=== PATIENT | male | born 1975 | race Hispanic/Latino ===

== ENCOUNTER 2017-01-12 23:37 | Inpatient (IN) | payer MEDICAID ==
[2017-01-12 23:37] VITALS: BMI 23.6
--- NOTE | 2017-01-12 23:41 | ED PDOC ---
Psych Transfer Clearance - Clearance Statement Clearance Statement: Reviewed vital signs, lab results and transfer papers. Patient clinically stable for psychiatric admission.
[2017-01-12 23:46] VITALS: O2SAT 98
[2017-01-13] MEDS ORDERED: DiphenhydrAMINE 50 mg/ml Inj IM PRN (01:27)
[2017-01-13] MEDS ORDERED: Magnesium Hydroxide Susp 30 ml UD PO PRN (01:27)
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
[2017-01-13 07:39] LABS: T4 7.54 ug/dl (5.5-11.0)
[2017-01-13 07:52] LABS: THYROID STIMULATING HORMONE 0.32 mIU/ML (0.46-4.68)
[2017-01-13] MEDS: Multivitamin With Minerals Tab PO SCH (10:17)
--- NOTE | 2017-01-13 10:32 | PCM.PSYCH ---
Initial Psychiatric Evaluation - Initial Psychiatric Evaluation Type of Admission: Voluntary Chief Complaint (in patient's own words): i m starting to kick hard Patient's Reaction to Hospitalization: cooperative History of Present Illness and Precipitating Events: pt has history of iv heroin use as well as bipolar disorder. he presented to er at [place] stating he was suicidal. he is currently stating he is withdrawing from heroin- cramps, nausea, diarrhea, aches. he also states he's been off his medications for 5 weeks. he states when he takes his medications he feels more stable. pt reports he feels safe in the hospital. he is currently very uncomfortable and unable to provide details. Current Medications: Active Medications Generic Name Dose Route Start Last Admin Trade Name Freq PRN Reason Stop Dose Admin Acetaminophen 650 mg 01/13/17 01:27 Tylenol 325mg Tab PO Q4 PRN Pain, moderate (4-7) Al Hydrox/Mg Hydrox/Simethicone 30 ml 01/13/17 01:27 Maalox Plus 30 Ml PO Q4 PRN Dyspepsia Citalopram Hydrobromide 20 mg 01/13/17 10:15 Celexa PO DAILY EVERARDO Clonidine HCl 0.1 mg 01/13/17 10:15 Catapres PO 01/16/17 10:16 Q8 EVERARDO Cyclobenzaprine HCl 10 mg 01/13/17 10:16 Flexeril PO TID PRN Muscle spasm Diphenhydramine HCl 50 mg 01/13/17 01:27 Benadryl IM Q6 PRN Extrapyramidal S/S Unable PO Diphenhydramine HCl 50 mg 01/13/17 01:27 Benadryl PO Q6 PRN Extrapyramidal Symptoms Divalproex Sodium 500 mg 01/13/17 10:[address](*Bid*) PO BID EVERARDO Folic Acid 1 mg 01/13/17 09:00 01/13/17 10:18 Folic Acid PO 1 mg DAILY EVERARDO Administration Gabapentin 400 mg 01/13/17 13:00 Neurontin PO TID EVERARDO Haloperidol 5 mg 01/13/17 01:27 Haldol PO Q4 PRN Agitation Haloperidol Lactate 5 mg 01/13/17 01:27 Haldol IM Q4 PRN Agitation, Unable to Take PO Loperamide HCl 2 mg 01/13/17 10:16 Imodium PO QID PRN Diarrhea Lorazepam 2 mg 01/13/17 01:27 Ativan IM Q4 PRN Anxiety/Agitation,Unable PO Lorazepam 2 mg 01/13/17 01:27 Ativan PO Q4 PRN Anxiety/Agitation Lorazepam 1 mg 01/13/17 09:00 01/13/17 10:17 Ativan PO 1 mg TID EVERARDO Administration Magnesium Hydroxide 30 ml 01/13/17 01:27 Milk Of Magnesia PO HS PRN Constipation Multivitamins/Minerals 1 tab 01/13/17 09:00 01/13/17 10:17 Therapeutic-M Tab PO 1 tab DAILY EVERARDO Administration Nicotine 1 patch 01/13/17 10:15 Nicoderm Cq TD DAILY EVERARDO Ondansetron HCl 4 mg 01/13/17 10:16 Zofran Tab PO Q4 PRN Nausea/Vomiting Quetiapine Fumarate 50 mg 01/13/17 22:00 Seroquel PO HS EVERARDO Thiamine HCl 100 mg 01/13/17 09:00 01/13/17 10:18 Vitamin B1 Tab PO 100 mg DAILY EVERARDO Administration Past Psychiatric History - Past Psychiatric History Previous Treatment History: Inpatient Prior Professional Help: multiple prior admissions Prior Psychiatric Treatment: states he has an aa sponser and was sober for 6 months last year History of Abuse: denies History of ETOH/Drug Use: pt injecting 3 bags of heroin iv and drinking 1 1/2 pints of vodka and 2 beers daily. smokes appox a pack of cigarettes daily History of Family Illness: denies Pertinent Medical Hx (Current Medical&Sleep Prob, Allergies): Allergies Allergy/AdvReac Type Severity Reaction Status Date / Time Penicillins Allergy RASH Verified 01/12/17 15:44 FISH AdvReac RASH Verified 01/12/17 15:44 Baclofen [Baclofen] 10 mg PO TID 07/05/16 Divalproex [Depakote DR] 500 mg PO BID 07/05/16 Escitalopram [Lexapro] 20 mg PO DAILY 10/29/16 Gabapentin 300 mg PO TID 10/29/16 QUEtiapine [SEROquel] 250 mg PO HS 10/29/16 Escitalopram [Lexapro] 10 mg PO DAILY #30 tab 11/02/16 Gabapentin [Neurontin] 300 mg PO BID #60 cap 03/14/17 QUEtiapine [Seroquel] 100 mg PO HS #30 tab 11/02/16 Naproxen 500 mg PO BID #30 tab 11/04/16 pt states he is hep c positive and not getting treatment Review of Systems - Psychiatric Psychiatric: As Per HPI, Abnormal Sleep Pattern, Anhedonia, Behavioral Changes, Depression, Difficulty Concentrating, Irritability, Suicidal Ideation Mental Status Examination - Personal Presentation Personal Presentation: Looks stated age - Affect Affect: Blunted - Motor Activity Motor Activity: Calm - Reliability in Providing Information Reliability in Providing Information: Good - Speech Speech: Organized - Mood Mood: Depressed - Formal Thought Process Formal Thought Process: No Impairment - Obsessions/Compulsions Obsessions: No Compulsions: No - Cognitive Functions Orientation: Person, Place, Situation, Time Sensorium: Alert Attention/Concentration: Attentive Abstract Thinking: [place] Estimate of Intelligence: Average Judgement: Intact, as evidence by: Insight regarding need for hospitalization Memory: Recent intact, as evidence by: Ability to recall events of the day, Remote intact, as evidenced by: Abilit to recall sig. life events - Risk Risk: Suicidal, Withdrawal - Strength & Assets Inventory Strength & Assets Inventory: Intelligence - Limitations Limitations: Living alone DSM 5 DX - DSM 5 DSM 5 Diagnosis: opioid dependence bipolar disorder - Recommended/Plan of Treatment Treatment Recommendations and Plan of Treatment: admit to [facility] for safety and observation gather collateral information provide supportive therapy adjust medications- restart home meds, ativan and opioid protocol meds hospitalist consult disposition planning- t/c referral to inpt rehab Projected ELOS: 3-5 days Prognosis: fair - Smoking Cessation Smoking Cessation Initiated: Yes
[2017-01-13] MEDS: Divalproex 500 mg DR(BID formulation) PO SCH ×2 (14:55→18:09)
[2017-01-14] MEDS: Multivitamin With Minerals Tab PO SCH (09:23)
[2017-01-14] MEDS: Divalproex 500 mg DR(BID formulation) PO SCH ×2 (09:24→16:18)
--- NOTE | 2017-01-14 09:51 | PCM.PYCHPN ---
Psychiatric Progress Note - Psychiatric Progress Note Patient seen today, length of contact: discussed with team Patient Chief Complaint: i m doing a little better Problems Identified/Issues Discussed: pt reports cramping, some diarrhea, aches. he is reporting no side effects with the reintroduction of his medications. he tends to isolate in his room. Medication Change: Yes Medical Record Reviewed: Yes Mental Status Examination - Cognitive Function Orientation: Person, Place, Situation, Time Memory: Intact Attention: WNL Concentration: WNL Association: WN Fund of Knowledge: [facility] Decription of patient's judgement and insights: fair - Mood Mood: Depressed - Affect Affect: Blunted - Speech Speech: Appropriate - Formal Thought Process Formal Thought Process: No Impairment Psychotic Thoughts and Behaviors: denies a/v hallucinations - Suicidal Ideation Suicidal Ideation: No - Homicidal Ideation Homicidal Ideation: No Plan: denies suicidal or homicidal thoughts Goal/Treatment Plan - Goal/Treatment Plan Need for Continued Stay: Remain at risks for inpatient hospitalization, Discharge may exacerbated symptoms Progress Toward Problem(s) and Goals/Treatment Plan: opioid depenedence bipolar disorder will continue current treatment disposition planning Estimated Date of D/C: 01/18/17
[2017-01-14 17:14] VITALS: RESP 18
[2017-01-15] MEDS: Divalproex 500 mg DR(BID formulation) PO SCH ×2 (08:59→17:44)
[2017-01-15] MEDS: Multivitamin With Minerals Tab PO SCH (09:23)
--- NOTE | 2017-01-15 17:51 | PCM.PYCHPN ---
Psychiatric Progress Note - Psychiatric Progress Note Patient seen today, length of contact: chart reviewed, case discussed with team 35min Patient Chief Complaint: withdrawal opiates, depression, resolving suicidal ideations Problems Identified/Issues Discussed: was feeling sad, wanted to overdose, feels sad without opiates worse with, intermittent adherence, generalized body pain resolving, diarrhea resolving Medical Problems: per chart hep c per hx Diagnostic Results: per psychiatry per medicine per nursing per social work DSM 5 Symptoms Update: mood, withdrawal, suicidal ideations, relapse, decrease community support, family circumstances Medication Change: Yes (seroquel 100mg po hs ) Medical Record Reviewed: Yes Mental Status Examination - Cognitive Function Orientation: Person, Place, Situation, Time Memory: Intact Attention: WNL Concentration: WNL Association: WNL Fund of Knowledge: [facility] Decription of patient's judgement and insights: impaired - Mood Mood: Depressed - Affect Affect: Blunted - Speech Speech: Appropriate - Formal Thought Process Formal Thought Process: No Impairment - Suicidal Ideation Suicidal Ideation: No - Homicidal Ideation Homicidal Ideation: No Goal/Treatment Plan - Goal/Treatment Plan Need for Continued Stay: Remain at risks for inpatient hospitalization, Discharge may exacerbated symptoms Progress Toward Problem(s) and Goals/Treatment Plan: inpt milieu adjust meds per status seroquel 100mg po hs vital signs and clinical observation per status and protocol discharge planning in progresss Estimated Date of D/C: 01/18/17 - Smoking Cessation Smoking Cessation Initiated: No Reason for not providing: defers
[2017-01-16] MEDS: Divalproex 500 mg DR(BID formulation) PO SCH (09:38)
[2017-01-16] MEDS: Multivitamin With Minerals Tab PO SCH (09:38)
--- NOTE | 2017-01-16 20:10 | PCM.PYCHPN ---
Psychiatric Progress Note - Psychiatric Progress Note Patient seen today, length of contact: chart reviewed, case discussed with team 35min Patient Chief Complaint: withdrawal opiates, depression, resolving suicidal ideations reports is 90 per cent better in terms of withdrawal, expresses desire to follow up in [facility] sleeping better feeling calmer Problems Identified/Issues Discussed: was feeling sad, wanted to overdose, feels sad without opiates worse with, intermittent adherence, generalized body pain resolving, diarrhea resolving Medical Problems: per chart hep c per hx Diagnostic Results: per psychiatry per medicine per nursing per social work Medication Change: Yes (seroquel 100mg po hs ) Medical Record Reviewed: Yes Mental Status Examination - Cognitive Function Orientation: Person, Place, Situation, Time Memory: Intact Attention: WNL Concentration: WNL Association: WNL Fund of Knowledge: [facility] Decription of patient's judgement and insights: impaired - Mood Mood: Depressed - Affect Affect: Blunted - Speech Speech: Appropriate - Formal Thought Process Formal Thought Process: No Impairment - Suicidal Ideation Suicidal Ideation: No - Homicidal Ideation Homicidal Ideation: No Goal/Treatment Plan - Goal/Treatment Plan Need for Continued Stay: Remain at risks for inpatient hospitalization, Discharge may exacerbated symptoms Progress Toward Problem(s) and Goals/Treatment Plan: inpt milieu adjust meds per status seroquel 100mg po hs vital signs and clinical observation per status and protocol discharge planning in progresss Estimated Date of D/C: 01/18/17
[2017-01-17] MEDS: Multivitamin With Minerals Tab PO SCH (10:37)
[2017-01-17] MEDS: Divalproex 500 mg DR(BID formulation) PO SCH ×2 (10:41→18:02)
--- NOTE | 2017-01-17 11:24 | PCM.PYCHPN ---
Psychiatric Progress Note - Psychiatric Progress Note Patient seen today, length of contact: discussed with team Patient Chief Complaint: my legs feel weak Problems Identified/Issues Discussed: pt reports withdrawal symptoms have diminished. he feels weak and dizzy with increase in seroquel. less tremulous. pt has future oriented goals. Medication Change: Yes (lower seroquel) Medical Record Reviewed: Yes Mental Status Examination - Cognitive Function Orientation: Person, Place, Situation, Time Memory: Intact Attention: WNL Concentration: WNL Association: WNL Fund of Knowledge: WN Decription of patient's judgement and insights: fair - Mood Mood: Depressed - Affect Affect: Blunted - Speech Speech: Appropriate - Formal Thought Process Formal Thought Process: No Impairment - Suicidal Ideation Suicidal Ideation: No - Homicidal Ideation Homicidal Ideation: No Goal/Treatment Plan - Goal/Treatment Plan Need for Continued Stay: Remain at risks for inpatient hospitalization, Discharge may exacerbated symptoms Progress Toward Problem(s) and Goals/Treatment Plan: opioid depenedence bipolar disorder will continue current treatment lower seroquel lower ativan disposition planing Estimated Date of D/C: 01/18/17
[2017-01-18] MEDS: Multivitamin With Minerals Tab PO SCH (08:33)
[2017-01-18] MEDS: Divalproex 500 mg DR(BID formulation) PO SCH ×2 (08:39→16:45)
[2017-01-18 08:56] VITALS: BP 106/58; PULSE 76; TEMP 97.5
--- NOTE | 2017-01-18 13:15 | PCM.PYCHPN ---
Psychiatric Progress Note - Psychiatric Progress Note Patient seen today, length of contact: discussed with team Patient Chief Complaint: i'm ok Problems Identified/Issues Discussed: pt denies withdrawal symptoms. resistant to change rooms to accommodate another pt. he is reporting looking forward to leaving for [place] . Medication Change: No ( ) Medical Record Reviewed: Yes Mental Status Examination - Cognitive Function Orientation: Person, Place, Situation, Time Memory: Intact Attention: WNL Concentration: WNL Association: WN Fund of Knowledge: [facility] Decription of patient's judgement and insights: fair - Mood Mood: Depressed - Affect Affect: Blunted - Speech Speech: Appropriate - Formal Thought Process Formal Thought Process: No Impairment - Suicidal Ideation Suicidal Ideation: No - Homicidal Ideation Homicidal Ideation: No Goal/Treatment Plan - Goal/Treatment Plan Need for Continued Stay: Remain at risks for inpatient hospitalization, Discharge may exacerbated symptoms Progress Toward Problem(s) and Goals/Treatment Plan: opioid depenedence bipolar disorder will continue current treatment lower librium continue current meds disposition planing Estimated Date of D/C: 01/20/17
[2017-01-18] MEDS: Alum-Mag Hydrox-Simethicone Susp (30 mL) PO PRN (19:27)
[2017-01-18] MEDS: Pantoprazole 40 mg EC Tab PO SCH (21:57)
[2017-01-18 22:12] LABS: BASO # 0.1 K/uL (0.0-0.2); BASO % 0.8 % (0.0-2.0); EOS # 0.2 K/uL (0.0-0.7); EOS % 3.3 % (0.0-4.0); HEMATOCRIT 40.4 % (35.0-51.0); LYMPH # 2.4 K/uL (1.0-4.3); MEAN CELL VOLUME 90.5 fl (80.0-94.0); MEAN CORPUSCULAR HEMOGLOBIN 30.8 pg (27.0-31.0); MONO # 0.6 K/uL (0.0-0.8); MONO % 9.6 % (0.0-10.0); NEUT # 3.4 K/uL (1.8-7.0); NEUT % 50.3 % (50.0-75.0); RED CELL DISTRIBUTION WIDTH 15.2 % (11.5-14.5); WHITE BLOOD COUNT 6.7 K/uL (4.8-10.8)
[2017-01-18 22:24] LABS: ALB/GLOB RATIO 1.3 (1.0-2.1); ALKALINE PHOSPHATASE 77 U/L (38-126); ALT/SGPT 42 U/L (21-72); AST/SGOT 32 U/L (17-59); BILIRUBIN,TOTAL 0.2 mg/dl (0.2-1.3); BLOOD UREA NITROGEN 20 mg/dl (9-20); CALCIUM 9.4 mg/dL (8.4-10.2); CARBON DIOXIDE 26 mmol/L (22-30); CHLORIDE 101 mmol/L (98-107); GFR AFRICAN-AMERICAN > 60; GLUCOSE,RANDOM 103 mg/dL (75-110); LIPASE 197 U/L (23-300); POTASSIUM 4.4 MMOL/L (3.6-5.0); SODIUM 139 mmol/l (132-148); TOTAL PROTEIN 7.5 G/DL (6.3-8.2)
[2017-01-19] MEDS: Alum-Mag Hydrox-Simethicone Susp (30 mL) PO PRN (04:30)
[2017-01-19] MEDS: Divalproex 500 mg DR(BID formulation) PO SCH ×2 (09:23→09:28)
[2017-01-19] MEDS: Multivitamin With Minerals Tab PO SCH (09:23)
--- NOTE | 2017-01-19 14:23 | PCM.PYCHPN ---
Psychiatric Progress Note - Psychiatric Progress Note Patient seen today, length of contact: discussed with team Patient Chief Complaint: i'm feel good Problems Identified/Issues Discussed: pt focused on his discharge tomorrow. states he will be with his sponsor from . he is denying any suicidal thoughts. denies medication side effects. Medication Change: Yes (dc librium) Medical Record Reviewed: Yes Mental Status Examination - Cognitive Function Orientation: Person, Place, Situation, Time Memory: Intact Attention: WNL Concentration: WNL Association: WNL Fund of Knowledge: WN Decription of patient's judgement and insights: fair - Mood Mood: Neutral - Affect Affect: Broad - Speech Speech: Appropriate - Formal Thought Process Formal Thought Process: No Impairment - Suicidal Ideation Suicidal Ideation: No - Homicidal Ideation Homicidal Ideation: No Goal/Treatment Plan - Goal/Treatment Plan Need for Continued Stay: Remain at risks for inpatient hospitalization, Discharge may exacerbated symptoms Progress Toward Problem(s) and Goals/Treatment Plan: opioid depenedence bipolar disorder will continue current treatment discontinue librium continue current meds disposition planing- discharge tomorrow morning Estimated Date of D/C: 01/20/17
--- NOTE | 2017-01-19 14:57 | PCM.PYCHDC ---
Mental Status Examination - Mental Status Examination Orientation: Person, Place, Situation, Time Memory: Intact Mood: Depressed Affect: Broad Speech: Appropriate Attention: WNL Concentration: WNL Association: WNL Fund of Knowledge: WNL Formal Thought Process: No Impairment Description of patient's judgement and insight: fair Psychotic Thoughts and Behaviors: denies a/v hallucinations Suicidal Ideation: No Current Homicidal Ideation?: No Plan: pt denies any suicidal or homicidal thoughts/plans or intent Discharge Summary - Discharge Note Reason for Hospitalization: substance use, depression, non-adherence with medications Psychiatric History (includes Medical, Family, Personal Hx): history of polysubstance abuse, bipolar disorder Laboratory Data: Abnormal Lab Results 01/18/17 01/18/17 21:51 21:51 WBC 6.7 RBC 4.46 Hgb 13.7 Hct 40.4 MCV 90.5 MCH 30.8 MCHC 34.0 RDW 15.2 H Plt Count 271 MPV 8.0 Neut % (Auto) 50.3 Lymph % (Auto) 36.0 [place] % (Auto) 9.6 Eos % (Auto) 3.3 Baso % (Auto) 0.8 Neut # 3.4 Lymph # 2.4 Valencia # 0.6 Eos # 0.2 Baso # 0.1 Sodium 139 Potassium 4.4 Chloride 101 Carbon Dioxide 26 Anion Gap 17 BUN 20 Creatinine 1.1 Est GFR ( Amer) > 60 Est GFR (Non-Af Amer) > 60 Random Glucose 103 Calcium 9.4 Total Bilirubin 0.2 AST 32 ALT 42 Alkaline Phosphatase 77 Total Protein 7.5 Albumin 4.3 Globulin 3.2 Albumin/Globulin Ratio 1.3 Lipase 197 Consultations:: List each consultation separately and include: 1. Reason for request. 2. Findings. 3. Follow-up Consultations: seen by hospitalist Summary of Hospital Course include:: 1. Description of specific treatment plan utilized for patients during their course of treatmen. 2. Summarize the time- course for resolution of acute symptoms and/or regressed behaviors. 3. Describe issues identified and worked on during hospitalization. 4. Describe medication utilized. 5. Describe medical problems identified and treated. 6. Reassessment of suicide risk Summary of Hospital Course: pt has history of iv heroin use as well as bipolar disorder. he presented to er at [facility] stating he was suicidal. he is currently stating he is withdrawing from heroin- cramps, nausea, diarrhea, aches. he also states he's been off his medications for 5 weeks. he states when he takes his medications he feels more stable. pt reports he feels safe in the hospital. he is currently very uncomfortable and unable to provide details. pt was admitted to [facility] and oriented to the unit. pt placed on routine safety protocols. pt was started on medications to help with withdrawal symptoms. he was started back on his regular psychiatric medications. his symptoms improved. his boss was in contact with pt and pt had a job set up after discharge. pt's aa sponsor was going to be with pt after discharge. pt was denying any suicidal or homicidal thoughts and was discharged home. - Final Diagnosis (DSM 5) Condition upon Discharge: GOOD DSM 5: polysubstance dependence bipolar disorder Disposition: HOME/ ROUTINE Follow-up Treatment Plan: take medications as prescribed do not use alcohol tobacco or other illicit substances call 911 if any suicidal or homicidal thoughts f/u with aftercare in [facility] attend aa meetings daily. Prescriptions/Medication Reconciliation: Citalopram [celEXA] 20 mg PO DAILY #30 tab Divalproex [Depakote DR] 500 mg PO BID #60 Folic Acid 1 mg PO DAILY #30 tab Gabapentin [Neurontin] 400 mg PO TID #90 cap Multimineral/Multivitamin [Therapeutic-M Tab] 1 tab PO DAILY #30 tab Nicotine 21 mg/24 hr [Nicoderm Cq] 1 patch TD DAILY #30 patch Pantoprazole [Protonix EC Tab] 40 mg PO DAILY #30 ect QUEtiapine [SEROquel] 50 mg PO HS #30 tab Thiamine [Vitamin B1 Tab] 100 mg PO DAILY #30 tab - Smoking Cessation Smoking Cessation Medication prescribed: Yes - Antipsychotic Medications Pt discharged on 2 or more routine antipsychotic medications: No
[2017-01-19] MEDS: Pantoprazole 40 mg EC Tab PO SCH (16:05)
== END 2017-01-19 16:09 | disposition home or self-care (01) | DRG 430 ==
LOC: H.ER 23:37 → H.PSYCH 01-13 00:43
PROVIDERS: ADMIT Psychiatry & Neurology Psychiatry; ATTEND Psychiatry & Neurology Psychiatry
PROC: GZHZZZZ Group Psychotherapy (ICD-10-PCS; principal; 2017-01-13)
PROC: GZ58ZZZ Individual Psychotherapy, Cognitive-Behavioral (ICD-10-PCS; 2017-01-13)
DX: F31.89 Other bipolar disorder (principal); R45.851 Suicidal ideations; F11.20 Opioid dependence, uncomplicated; B18.2 Chronic viral hepatitis C; F10.129 Alcohol abuse with intoxication, unspecified; F43.10 Post-traumatic stress disorder, unspecified; F17.200 Nicotine dependence, unspecified, uncomplicated; Z91.14 Patient's other noncompliance with medication regimen; Z91.5 Personal history of self-harm; Z88.0 Allergy status to penicillin; Z91.013 Allergy to seafood

== ENCOUNTER 2017-03-31 17:00 | Emergency (ER) | payer MEDICAID ==
[2017-03-31 17:00] VITALS: BMI 23.6
[2017-03-31 17:05] VITALS: O2SAT 100
--- NOTE | 2017-03-31 22:10 | ED PDOC ---
HPI: Psych/Substance Abuse Time Seen by Provider: 03/31/17 17:15 Chief Complaint (Nursing): Alcohol Ingestion Chief Complaint (Provider): Alcohol abuse- Brought by EMs ED Caveat: Acuity of Condition History Per: Patient History/Exam Limitations: no limitations Onset/Duration Of Symptoms: Unknown Current Symptoms Are (Timing): Still Present Suicide/Self Injury Attempted (Context): None Modifying Factor(s): Alcohol Involuntary Hold By: None Additional History Per: Patient, EMS Past Medical History Reviewed: Historical Data, Nursing Documentation, Vital Signs Vital Signs: Last Vital Signs Temp 97.9 F 03/31/17 17:04 Pulse 66 03/31/17 17:04 Resp 16 03/31/17 17:04 BP 116/67 03/31/17 17:04 Pulse Ox 100 03/31/17 17:04 - Medical History PMH: Anxiety, Bipolar Disorder, Depression, Paranoia, Post Traumatic Stress Disorder Denies: Diabetes, Hepatitis, HIV, HTN, Hyperthyroidism, Kidney Stones, Chronic Kidney Disease, Seizures, Sexually Transmitted Disease (possible chlamydia) - Surgical History Surgical History: No Surg Hx - Family History Family History: States: Unknown Family Hx - Immunization History Hx Tetanus Toxoid Vaccination: No Hx Influenza Vaccination: No Hx Pneumococcal Vaccination: No - Home Medications Home Medications: Ambulatory Orders Medication Instructions Recorded Citalopram [celEXA] 20 mg PO DAILY #30 tab 01/19/17 Gabapentin [Neurontin] 400 mg PO TID #90 cap 01/19/17 Divalproex [Depakote DR] 750 mg PO BID 03/05/17 QUEtiapine [SEROquel] 100 mg PO HS 03/05/17 traZODone [Desyrel] 100 mg PO DAILY 03/16/17 Mupirocin 2% Ointment [Bactroban 1 appl TP BID #1 tube 03/30/17 Ointment] - Allergies Allergies/Adverse Reactions: Allergies Allergy/AdvReac Type Severity Reaction Status Date / Time Penicillins Allergy RASH Verified 01/12/17 15:44 FISH AdvReac RASH Verified 01/12/17 15:44 Review of Systems ROS Statement: Except As Marked, All Systems Reviewed And Found Negative Constitutional: Negative for: Fever, Chills Gastrointestinal: Negative for: Nausea, Vomiting, Abdominal Pain Physical Exam - Reviewed Nursing Documentation Reviewed: Yes Vital Signs Reviewed: Yes - Physical Exam Appears: Positive for: Well, Non-toxic, No Acute Distress Head Exam: Positive for: ATRAUMATIC, NORMAL INSPECTION, NORMOCEPHALIC Skin: Positive for: Normal Color, Warm, DRY Eye Exam: Positive for: EOMI, Normal appearance, PERRL ENT: Positive for: Normal ENT Inspection Neck: Positive for: Normal, Painless ROM Cardiovascular/Chest: Positive for: Regular Rate, Rhythm Respiratory: Positive for: CNT, Normal Breath Sounds Gastrointestinal/Abdominal: Positive for: Normal Exam, Bowel Sounds, Soft Back: Positive for: Normal Inspection Extremity: Positive for: Normal ROM Neurologic/Psych: Positive for: Alert - ECG O2 Sat by Pulse Oximetry: 100 Medical Decision Making Medical Decision Makin - Pt with clear speech and steady gait. requesting "dinner" Disposition - Clinical Impression Clinical Impression: Alcohol abuse - Patient ED Disposition Is Patient to be Admitted: No Counseled Patient/Family Regarding: Diagnosis, Need For Followup - Disposition Disposition: Routine/Home Disposition Time: 21:07 Condition: GOOD Instructions: Abuse of Alcohol (ED)
[2017-04-01 00:24] VITALS: BP 128/88; PULSE 76; RESP 18; TEMP 97.8
== END 2017-04-01 00:26 | disposition home or self-care (01) ==
LOC: H.ER 17:00
DX: F10.10 Alcohol abuse, uncomplicated (principal); F31.9 Bipolar disorder, unspecified; F43.10 Post-traumatic stress disorder, unspecified; Z88.0 Allergy status to penicillin

== ENCOUNTER 2017-04-21 01:36 | Observation (INO) | payer MEDICAID ==
[2017-04-21 01:37] VITALS: BMI 23.6
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
[2017-04-21 02:23] LABS: BASO # 0.1 K/uL (0.0-0.2); BASO % 0.9 % (0.0-2.0); EOS # 0.2 K/uL (0.0-0.7); EOS % 2.1 % (0.0-4.0); HEMATOCRIT 42.7 % (35.0-51.0); LYMPH # 3.5 K/uL (1.0-4.3); LYMPH % 43.1 % (20.0-40.0); MEAN CELL VOLUME 91.2 fl (80.0-94.0); MEAN CORPUSCULAR HEMOGLOBIN 30.1 pg (27.0-31.0); MONO # 0.5 K/uL (0.0-0.8); MONO % 6.5 % (0.0-10.0); NEUT # 3.9 K/uL (1.8-7.0); NEUT % 47.4 % (50.0-75.0); NRBC % 0.1 % (0.0-0.0); RED CELL DISTRIBUTION WIDTH 14.7 % (11.5-14.5); WHITE BLOOD COUNT 8.2 K/uL (4.8-10.8)
[2017-04-21 02:31] LABS: RBC URINE 3 /hpf (0-3); URINE BACTERIA OCC (<OCC); URINE BILIRUBIN NEGATIVE (NEGATIVE); URINE BLOOD NEGATIVE (NEGATIVE); URINE COLOR YELLOW (YELLOW); URINE GLUCOSE (UA) NEG (Normal); URINE KETONE NEGATIVE (NEGATIVE); URINE LEUKOCYTE ESTERASE NEG Leu/uL (Negative); URINE PROTEIN NEGATIVE (NEGATIVE); URINE UROBILINOGEN 0.2-1.0 mg/dL (0.2-1.0); WBC URINE 2 /hpf (0-5)
[2017-04-21 02:31] LABS: BLOOD UREA NITROGEN 11 mg/dl (9-20); CHLORIDE 114 mmol/L (98-107); GFR AFRICAN-AMERICAN > 60; GLUCOSE,RANDOM 129 mg/dL (75-110); POTASSIUM 3.3 MMOL/L (3.6-5.0); SODIUM 149 mmol/l (132-148)
[2017-04-21 02:32] LABS: ALB/GLOB RATIO 1.1 (1.0-2.1); ALCOHOL SERUM 222 mg/dl (0-10); ALKALINE PHOSPHATASE 97 U/L (38-126); ALT/SGPT 23 U/L (21-72); AST/SGOT 35 U/L (17-59); BILIRUBIN,TOTAL 0.3 mg/dl (0.2-1.3); CALCIUM 8.8 mg/dL (8.4-10.2); CARBON DIOXIDE 19 mmol/L (22-30); TOTAL PROTEIN 7.3 G/DL (6.3-8.2)
[2017-04-21] MEDS ORDERED: Potassium Chloride 20 mEq ER Tab PO ONE ×3 (02:35→07:19)
--- NOTE | 2017-04-21 06:18 | ED PDOC ---
- Laboratory Results Result Diagrams: 04/21/17 02:17 04/21/17 02:17 - ECG O2 Sat by Pulse Oximetry: 97 Pulse Ox Interpretation: Normal Medical Decision Making Medical Decision Makin: Pt. still sleeping, crisis was not yet able to fully evaluate patient. Will endorse to day team pending final decision by Crisis. Disposition - Clinical Impression Clinical Impression: Polysubstance abuse, Suicidal ideation, Homicidal ideation - POA Present On Arrival: None - Disposition Referrals: Mikayla Bradley MD [Primary Care Provider] - Disposition: Transfer of Care Disposition Time: 07:00 Condition: STABLE Patient Signed Over To: Patricio Barclay Handoff Comments: pending crisis eval
[2017-04-21 06:30] VITALS: RESP 18
--- NOTE | 2017-04-21 09:01 | ED PDOC ---
- Laboratory Results Result Diagrams: 04/21/17 02:17 04/21/17 02:17 - ECG O2 Sat by Pulse Oximetry: 95 - Progress Re-evaluation Time: 13:35 Condition: Improved (Evaluated by [facility] screeners. Not appropriate for involuntary admission as pt is no longer suicidal or homicidal) Medical Decision Making Medical Decision Making: Medically stable for psychiatric admission Disposition - Clinical Impression Clinical Impression: Polysubstance abuse, Suicidal ideation, Homicidal ideation, Bipolar disorder - POA Present On Arrival: None - Disposition Disposition: Routine/Home Disposition Time: 13:36 Condition: STABLE
--- NOTE | 2017-04-21 09:37 | RAD ---
HISTORY: cough COMPARISON: 07/05/2016. FINDINGS: LUNGS: The lungs are well inflated and clear. PLEURA: No significant pleural effusion identified, no pneumothorax apparent. CARDIOVASCULAR: Normal. OSSEOUS STRUCTURES: No significant abnormalities. VISUALIZED UPPER ABDOMEN: Normal. OTHER FINDINGS: None. IMPRESSION: No active pulmonary disease.
[2017-04-21 12:42] VITALS: BP 119/72; PULSE 75; TEMP 98.1
[2017-04-21 13:38] VITALS: O2SAT 95
--- NOTE | 2017-04-22 00:05 | CARD ---
APPROVED REPORT EKG Measurement Heart [id number] <Conclusion> Normal sinus rhythm Normal ECG
== END 2017-04-21 13:42 | disposition home or self-care (01) ==
LOC: H.ER 01:36 → H.EROBSV 04:00
PROVIDERS: ADMIT Emergency Medicine; ATTEND Emergency Medicine
DX: F10.129 Alcohol abuse with intoxication, unspecified (principal); Y90.7 Blood alcohol level of 200-239 mg/100 ml; F14.10 Cocaine abuse, uncomplicated; F11.10 Opioid abuse, uncomplicated; Z88.0 Allergy status to penicillin; Z91.013 Allergy to seafood; F31.9 Bipolar disorder, unspecified; F43.10 Post-traumatic stress disorder, unspecified; R45.850 Homicidal ideations; R45.851 Suicidal ideations; F17.200 Nicotine dependence, unspecified, uncomplicated
CPT/HCPCS: 71010; 80053; 80320; 80324; 80345; 80346; 80349; 80353; 80358; 80361; 81003; 82948; 83992; 85025; 93005; 99284; G0378

== ENCOUNTER 2017-09-10 21:11 | Inpatient (IN) | payer MEDICAID ==
[2017-09-10 21:12] VITALS: BMI 23.6
--- NOTE | 2017-09-10 22:48 | ED PDOC ---
HPI: Psych/Substance Abuse Time Seen by Provider: 09/10/17 21:25 Chief Complaint (Nursing): Psychiatric Evaluation Chief Complaint (Provider): Psychiatric Evaluation History Per: Patient History/Exam Limitations: intoxication Onset/Duration Of Symptoms: Days (x1) Current Symptoms Are (Timing): Still Present Modifying Factor(s): Alcohol, Other (Heroin) Additional Complaint(s): 41 year old male with a history of bipolar disorder, PTSD, alcohol and heroin abuse, presents to the ER for psychiatric evaluation. Patient complains of having paranoid hallucinations of people following him and attempting to hurt him. States the voices are telling him to keep drinking. Patient reports he has been feeling suicidal, and has thoughts of killing himself via drug overdose. Patient reports using 13 bags of heroin. PMD: None Past Medical History Reviewed: Historical Data, Nursing Documentation, Vital Signs Vital Signs: Last Vital Signs Temp 98.4 F 09/10/17 21:17 Pulse 87 09/10/17 21:17 Resp 16 09/10/17 21:17 BP 108/72 09/10/17 21:17 Pulse Ox 98 09/10/17 21:17 - Medical History PMH: Anxiety, Bipolar Disorder, Depression, Paranoia, Post Traumatic Stress Disorder, Sexually Transmitted Disease (possible chlamydia) Denies: Diabetes, Hepatitis, HIV, HTN, Hyperthyroidism, Kidney Stones, Chronic Kidney Disease, Seizures Other PMH: Alcohol and substance abuse - Surgical History Surgical History: Other surgeries: Left eye surgery - Family History Family History: States: Unknown Family Hx - Social History Current smoker - smoking cessation education provided: Yes Alcohol: None Drugs: Opiates (Heroin) - Immunization History Hx Tetanus Toxoid Vaccination: No Hx Influenza Vaccination: No Hx Pneumococcal Vaccination: No - Home Medications Home Medications: Ambulatory Orders Medication Instructions Recorded Divalproex [Depakote ER] 250 mg PO BID #60 ter 08/05/17 Escitalopram [Lexapro] 5 mg PO DAILY #30 tab 08/05/17 Gabapentin [Neurontin] 300 mg PO BID #60 cap 08/05/17 QUEtiapine [Seroquel] 100 mg PO HS #30 tab 08/05/17 - Allergies Allergies/Adverse Reactions: Allergies Allergy/AdvReac Type Severity Reaction Status Date / Time Penicillins Allergy RASH Verified 07/30/17 15:52 FISH AdvReac RASH Verified 07/30/17 15:52 Review of Systems ROS Statement: Except As Marked, All Systems Reviewed And Found Negative Psych: Positive for: Depression, Suicidal ideation (with plan to overdose), Other (Substance abuse) Physical Exam - Reviewed Nursing Documentation Reviewed: Yes Vital Signs Reviewed: Yes - Physical Exam Appears: Positive for: Non-toxic, No Acute Distress Head Exam: Positive for: ATRAUMATIC, NORMOCEPHALIC Skin: Positive for: Normal Color, Warm, Dry Eye Exam: Positive for: EOMI, Normal appearance, PERRL Neck: Positive for: Normal, Painless ROM, Supple Cardiovascular/Chest: Positive for: Regular Rate, Rhythm. Negative for: Murmur Respiratory: Positive for: Normal Breath Sounds. Negative for: Accessory Muscle Use, Respiratory Distress Gastrointestinal/Abdominal: Positive for: Normal Exam, Soft. Negative for: Tenderness Extremity: Positive for: Normal ROM. Negative for: Deformity Neurologic/Psych: Positive for: Alert, Oriented, Mood/Affect (appears anxious, tearful on exam) - Laboratory Results Result Diagrams: 09/11/17 01:02 09/11/17 01:02 - ECG O2 Sat by Pulse Oximetry: 98 (RA) Pulse Ox Interpretation: Normal Medical Decision Making Medical Decision Making: Initial Impression: Decompensated bipolar disorder, Alcohol abuse, Drug abuse Time: 21:33 Initial Plan: --Acetaminophen --Alcohol serum --Urine drug screen --Salicylate --BMP --CBC w/ differential --Urinalysis --Placed on 1:1 observation --Pending crisis evaluation Time: 625 Patient seen and evaluated by crisis team and is to be admitted under Dr. Duong for depression. Scribe Attestation: Documented by Abby Nieves, acting as a scribe for Arik Lynch MD Provider Scribe Attestation: All medical record entries made by the Scribe were at my direction and personally dictated by me. I have reviewed the chart and agree that the record accurately reflects my personal performance of the history, physical exam, medical decision making, and the department course for this patient. I have also personally directed, reviewed, and agree with the discharge instructions and disposition Disposition - Clinical Impression Clinical Impression: Depression - Disposition Disposition Time: 06:30 Condition: GUARDED
[2017-09-11 01:05] LABS: BASO # 0.1 K/uL (0.0-0.2); BASO % 0.9 % (0.0-2.0); EOS # 0.4 K/uL (0.0-0.7); EOS % 5.3 % (0.0-4.0); HEMOGLOBIN 11.9 g/dL (12.0-18.0); LYMPH # 3.8 K/uL (1.0-4.3); LYMPH % 47.5 % (20.0-40.0); MEAN CELL VOLUME 89.7 fl (80.0-94.0); MEAN CORPUSCULAR HEMOGLOBIN 29.8 pg (27.0-31.0); MEAN CORPUSCULAR HGB CONC 33.3 g/dL (33.0-37.0); MEAN PLATELET VOLUME 7.6 fl (7.2-11.7); MONO # 0.6 K/uL (0.0-0.8); MONO % 7.5 % (0.0-10.0); NEUT # 3.1 K/uL (1.8-7.0); NEUT % 38.8 % (50.0-75.0); NRBC % 0.1 % (0.0-0.0); RBC 3.98 Mil/uL (4.40-5.90); WHITE BLOOD COUNT 8.1 K/uL (4.8-10.8)
[2017-09-11 01:15] LABS: BLOOD UREA NITROGEN 17 mg/dl (9-20); CALCIUM 8.7 mg/dL (8.4-10.2); GFR AFRICAN-AMERICAN > 60; GFR NON-AFRICAN AMERICAN > 60
[2017-09-11 01:20] LABS: ACETAMINOPHEN < 10.0 ug/ml (10.0-30.0); SALICYLATE < 1.0 mg/dl
[2017-09-11 04:46] LABS: URINE BILIRUBIN NEGATIVE (NEGATIVE); URINE BLOOD NEGATIVE (NEGATIVE); URINE CLARITY CLEAR (Clear); URINE COLOR YELLOW (YELLOW); URINE GLUCOSE (UA) NEG (Normal); URINE LEUKOCYTE ESTERASE NEG Leu/uL (Negative); URINE NITRATE NEGATIVE (NEGATIVE); URINE PROTEIN NEGATIVE (NEGATIVE); URINE UROBILINOGEN 0.2-1.0 mg/dL (0.2-1.0)
[2017-09-11 05:02] LABS: BARBITURATES, UR NEGATIVE (NEGATIVE); BENZODIAZEPINES, UR NEGATIVE (NEGATIVE); PHENCYCLIDINE, UR NEGATIVE (NEGATIVE)
[2017-09-11 05:06] LABS: OPIATES, UR POSITIVE (NEGATIVE)
[2017-09-11 06:27] VITALS: O2SAT 98
--- NOTE | 2017-09-11 10:11 | PCM.BM ---
<Nivia Sumner - Last Filed: 09/11/17 10:09> Treatment Plan Problems - Problems identified on initial assessmt Feelings of Worthlessness Date Initiated: 09/11/17 Time Initiated: 10:09 Assessment reference: NA Status: Active Treatment assets and liabiliti Patient Assests: adapts well, cooperative, ADL independent, physically healthy, good interpersonal skills Patient Liabilities: relationship conflicts, substance abuse - Milieu Protocol Maintain good personal hygiene: daily Encourage regular showers, every shift Remind patient to perform daily oral care, every shift Assist patient to perform ADL's Conduct patient checks and document Observation sheet: Q15 minutes Maintain personal safety: every shift Educate patient to report safety concerns to staff, every shift Monitor environment for contraband/sharps Medication safety: Monitor for expected outcome, potential side effects: every shift, Assess barriers to learning: every shift, Assess readiness for medication education: every shift <Sheila Sloan - Last Filed: 09/14/17 16:00> Treatment assets and liabiliti Patient Assests: adapts well, cooperative, resourceful, self-reliant, ADL independent, physically healthy, negotiates basic needs, good interpersonal skills Patient Liabilities: poor support system (limited), relationship conflicts, substance abuse Family Contact Family involvement: Family/SO is involved Family contact: Patient agrees to contact, Family has been contacted by patient , Telephone contact initiated by staff Family contact name: mother in-law (Jocelyn [phone]) Family contacted how many times per week?: 2 Family contact comment: Safety Belt Installer approached by patient requesting to call mother in-law and notify her of plans to go to rehab. Safety Belt Installer explained that unless typewriter tester can confirm plans with patients cousin (planning to pay for tx) or with rehab ([facility]), typewriter tester cannot tell family that is where patient is going. Safety Belt Installer inquired whether a bed is being saved for patient. Patient denies , explaining that there are several beds available and his cousin will just drop him off next week to begin tx. Safety Belt Installer encouraged patient to allow typewriter tester to contact facility and complete formal referral to guarantee a bed. Patient not agreeable, stating Its already being taken care of. Patient declined to sign consent or cousin assisting patient with rehab placement, stating that he does not have his number. Patient provided typewriter tester with consent to speak to his mother in-law regarding aftercare plans, stating You can talk to her about the rehab but shes got a little dementia so she might not remember.. Safety Belt Installer placed call to patients mother in-law (Jocelyn [phone]) to discuss patient s progress on 3NP and aftercare. Safety Belt Installer inquired how patient had been communicating with his cousin to arrange placement. Patient reports having been part of a 3 way conversation between his cousin and mother in-law to coordinate rehab placement. Patients mother in-law denies having been involved in the conversation between patients and his cousin in regarding to rehab, stating Ane[facility]y called and told me it was a good place. I didnt speak to his cousin. I dont speak to that side of the family. Safety Belt Installer emphasized importance of confirming patients rehab placement to ensure that patient is discharged from [facility] with the appropriate prescriptions and aftercare. Jocelyn expressed understanding but stated He sounds excited to go. If he says its a good place , its a good place. Safety Belt Installer inquired whether patient would be allowed to return to her home upon completing treatment. Jocelyn reported that patient has not lived with her for several years as she resides in a studio for seniors and is not allowed to have other stay with her. Safety Belt Installer explained that patient will be met with on 09/15 to discuss conflicting collateral and confirm aftercare plans. Safety Belt Installer to notify Jocelyn once patient is anticipated for discharge. - Goals for Treatment Patient goals for treatment: Patient to continue stabilization on 3NP through medication management and group/supportive therapy. Patient to be encouraged to attend groups regularly to promote self-awareness, sobriety, and improve insight , coping skills and self-esteem. Patient to be provided with referral for appropriate level of aftercare to reduce risk of future hospitalizations and ensure safety in the community. Patient reports plans to begin rehab with [facility] next week. Safety Belt Installer in the process of confirming plans to ensure safe discharge with appropriate aftercare. Discharge/Continuing Care - Education Needs Education Needs: Family Medication, Family Coping Skills, Family Community resources, Family Aftercare Safety Plan, Patient Medication, Patient Coping Skills, Patient Community resources, Patient Aftercare Safety Plan - Discharge Discharge Criteria: Tolerates medication w/o severe side effects, Free of Suicidal thoughts, Free of agitation, Normal sleep pattern, Ability to care for self, No longer exhibiting s/s of withdrawal, Reduction of target symptoms Discharge to:: Substance Abuse Rehab, Other (Pt reported residing with mother in -law. Mother in-law denies.) - Treatment Team Participation Patient/Family/SO Statement: 09/14/17 16:17 Patient attended tx tea this morning and was able to engage in discussion regarding progress on 3NP and aftercare. Patient reported worsening anxiety and frequent nightmares related to past trauma. Medication management discussed at length. Patient somewhat resistant to medication changes recommended and was able to express concerns with Dr. Jacques. Patient reports improvement in symptoms of withdrawal. Patient denies SI/HI and is able to contract for safety on 3NP. No harmful behaviors noted. Patient remains socially withdrawn and isolative on 3NP but to a lesser degree than upon admission. Referrals to rehab discussed at length. Safety Belt Installer explained that although referrals will be initiated and pursued through-out patients stabilization, it is not guaranteed that patient will be discharged directly to a rehab. Patient would then be discharged with contact information for referred facilities so patient can follow-up in the community and an appointment to outpatient mental health/substance abuse services. Patient expressed understanding and was agreeable. Discussed with Family/SO: Yes Was Patient/Family/SO present at Treatment Team Meeting: Yes <Elizabeth Jacques - Last Filed: 09/15/17 12:39> - Diagnosis (1) Depression Status: Acute Interventions: psychotherapy pharmacotherapy 09/15/17 12:38
[2017-09-11] MEDS ORDERED: Magnesium Hydroxide Susp 30 ml UD PO PRN (11:32)
[2017-09-11] MEDS ORDERED: DiphenhydrAMINE 50 mg/ml Inj IM PRN (11:32)
[2017-09-11] MEDS ORDERED: Alum-Mag Hydrox-Simethicone Susp (30 mL) PO PRN (11:32)
--- NOTE | 2017-09-11 12:37 | PCM.PSYCH ---
Initial Psychiatric Evaluation - Initial Psychiatric Evaluation Type of Admission: Voluntary Chief Complaint (in patient's own words): i relapsed Patient's Reaction to Hospitalization: pt is depressed History of Present Illness and Precipitating Events: This is a 41 yr old male with h/o depression ,PTSD and opiate and alcohol abuse and admitted for significant depression manifested by suicidal thoughts and plan to overdose on illicit drugs.pt reports abusing heroin and recently relapsed on heroin using 13 bags a day after being sober for sometime.pt has h/ o multiple admissions to [facility] for depression and opiate and alcohol abuse and was last d/c on depakote,neurontin and seroquel and celexa and has been noncompliant with the meds. Current Medications: Active Medications Generic Name Dose Route Start Last Admin Trade Name Freq PRN Reason Stop Dose Admin Acetaminophen 650 mg 09/11/17 11:32 Tylenol 325mg Tab PO Q4 PRN Pain, moderate (4-7) Al Hydrox/Mg Hydrox/Simethicone 30 ml 09/11/17 11:32 Maalox Plus 30 Ml PO Q4 PRN Dyspepsia Clonidine HCl 0.1 mg 09/11/17 11:45 Catapres PO 09/14/17 11:46 Q8 EVERARDO Diphenhydramine HCl 50 mg 09/11/17 11:32 Benadryl IM Q6 PRN Extrapyramidal S/S Unable PO Diphenhydramine HCl 50 mg 09/11/17 11:40 Benadryl PO Q6 PRN Muscle spasm Haloperidol 5 mg 09/11/17 11:32 Haldol PO Q4 PRN Agitation Haloperidol Lactate 5 mg 09/11/17 11:32 Haldol IM Q4 PRN Agitation, Unable to Take PO Ibuprofen 800 mg 09/11/17 11:41 Motrin Tab PO 09/14/17 11:43 Q6 PRN Pain, Mild (1-3) Loperamide HCl 2 mg 09/11/17 11:41 Imodium PO Q4 PRN After Loose Bowel Movement Lorazepam 2 mg 09/11/17 11:32 Ativan IM Q4 PRN Anxiety/Agitation,Unable PO Lorazepam 2 mg 09/11/17 11:39 Ativan PO Q6 PRN Anxiety Magnesium Hydroxide 30 ml 09/11/17 11:32 Milk Of Magnesia PO HS PRN Constipation Multivitamins/Minerals 1 tab 09/12/17 09:00 Therapeutic-M Tab PO DAILY EVERARDO Past Psychiatric History - Past Psychiatric History At [facility] Nature of Treatment: for depression and mood disorder History of Abuse: pt denies History of ETOH/Drug Use: long h/o alcohol and opiate abuse History of Family Illness: not known Pertinent Medical Hx (Current Medical&Sleep Prob, Allergies): Allergies Allergy/AdvReac Type Severity Reaction Status Date / Time Penicillins Allergy RASH Verified 07/30/17 15:52 FISH AdvReac RASH Verified 07/30/17 15:52 Citalopram [celeXA] 10 mg PO DAILY 09/11/17 Divalproex [Depakote ER] 500 mg PO BID 09/11/17 Gabapentin [Neurontin] 100 mg PO TID 09/11/17 QUEtiapine [Seroquel] 150 mg PO HS 09/11/17 not significant Review of Systems - Review of Systems All systems: reviewed and no additional remarkable complaints except Mental Status Examination - Personal Presentation Personal Presentation: Looks stated age - Affect Affect: Constricted - Motor Activity Motor Activity: Calm - Reliability in Providing Information Reliability in Providing Information: Fair - Speech Speech: Relevant - Mood Mood: Depressed, Anxious - Formal Thought Process Formal Thought Process: Flight of ideas - Obsessions/Compulsions Obsessions: No Compulsions: No - Cognitive Functions Orientation: Person, Place, Situation, Time Sensorium: Alert Attention/Concentration: Easily distracted Abstract Thinking: As evidence by abstract perception of proverbs Estimate of Intelligence: Average Judgement: Imparied, as evidence by: Poor judgement, Imparied, as evidence by: Lack of insight into illness Memory: Recent intact, as evidence by: Ability to recall events of the day, Remote intact, as evidenced by: Ability to recall historical events - Risk Risk: Withdrawal, Diminished functioning - Strength & Assets Inventory Strength & Assets Inventory: Family support DSM 5 DX - DSM 5 DSM 5 Diagnosis: Bipolar disorder I ,most recent depressed opiate abuse alcohol abuse - Recommended/Plan of Treatment Treatment Recommendations and Plan of Treatment: will restart pt on all his psychiatric meds including depakote,celexa,seroquel and neurontin and titrate dose by checking VPA levels. will start pt kn detox proticol for opiates and alcohol medical consult with hospitalist
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
[2017-09-11] MEDS: Divalproex 500 mg DR(BID formulation) PO SCH (17:24)
[2017-09-12 07:54] LABS: ALB/GLOB RATIO 1.1 (1.0-2.1); ALBUMIN 3.9 g/dL (3.5-5.0)
[2017-09-12 08:11] LABS: T4 7.27 ug/dl (5.5-11.0)
[2017-09-12 08:18] LABS: BILIRUBIN,DIRECT 0.3 mg/ml (0.0-0.4)
[2017-09-12] MEDS: Divalproex 500 mg DR(BID formulation) PO SCH (10:03)
[2017-09-12] MEDS: Multivitamin With Minerals Tab PO SCH (10:04)
--- NOTE | 2017-09-12 13:23 | CP.PCM.PN ---
Subjective - Date & Time of Evaluation Date of Evaluation: 09/12/17 Time of Evaluation: 09:30 - Subjective Subjective: 41 y/o M admitted for evaluation and management of acute depression and suicidal ideation. Today, pt complains of nausea, generalized body aches, bilateral mild hand tremor and diffuse abdominal pain. No acute event s overnight. Pt denies vomiting stoday. Pt afebrile and tolerating PO. -Pt reports drinking a ton of alcohol almost daily, cocaine <1gr almost daily, IV heroin most of the days. Objective - Vital Signs/Intake and Output Vital Signs (last 24 hours): Temp Pulse Resp BP Pulse Ox 97.9 F 70 16 102/67 98 09/12/17 09:00 09/12/17 10:02 09/12/17 09:00 09/12/17 10:02 09/11/17 07:58 - Medications Medications: Current Medications Acetaminophen (Tylenol 325mg Tab) 650 mg PO Q4 PRN PRN Reason: Pain, moderate (4-7) Al Hydrox/Mg Hydrox/Simethicone (Maalox Plus 30 Ml) 30 ml PO Q4 PRN PRN Reason: Dyspepsia Clonidine HCl (Catapres) 0.1 mg PO Q8 [facility] Stop: 09/14/17 11:46 Last Admin: 09/12/17 10:02 Dose: 0.1 mg Cyclobenzaprine HCl (Flexeril) 10 mg PO TID PRN PRN Reason: Muscle spasm Diphenhydramine HCl (Benadryl) 50 mg IM Q6 PRN PRN Reason: Extrapyramidal S/S Unable PO Diphenhydramine HCl (Benadryl) 50 mg PO Q6 PRN PRN Reason: Muscle spasm Gabapentin (Neurontin) 300 mg PO TID [facility] Last Admin: 09/12/17 10:04 Dose: Not Given Haloperidol (Haldol) 5 mg PO Q4 PRN PRN Reason: Agitation Haloperidol Lactate (Haldol) 5 mg IM Q4 PRN PRN Reason: Agitation, Unable to Take PO Ibuprofen (Motrin Tab) 800 mg PO Q6 PRN PRN Reason: Pain, Mild (1-3) Stop: 09/14/17 11:43 Loperamide HCl (Imodium) 2 mg PO Q4 PRN PRN Reason: After Loose Bowel Movement Lorazepam (Ativan) 2 mg IM Q4 PRN PRN Reason: Anxiety/Agitation,Unable PO Lorazepam (Ativan) 2 mg PO Q6 PRN PRN Reason: Anxiety Magnesium Hydroxide (Milk Of Magnesia) 30 ml PO HS PRN PRN Reason: Constipation Multivitamins/Minerals (Therapeutic-M Tab) 1 tab PO DAILY [facility] Last Admin: 09/12/17 10:04 Dose: Not Given Quetiapine Fumarate (Seroquel) 150 mg PO HS [facility] Last Admin: 09/11/17 21:47 Dose: 150 mg - Labs Labs: 09/11/17 01:02 09/11/17 01:02 - Constitutional Appears: Well, Other (Pt very uncomfortable with his symptoms. ) - Eye Exam Eye Exam: EOMI, Normal appearance, PERRL - ENT Exam ENT Exam: Mucous Membranes Moist, Normal Exam - Neck Exam Neck Exam: Full ROM, Normal Inspection - Respiratory Exam Respiratory Exam: Clear to Ausculation Bilateral, Rhonchi - Cardiovascular Exam Cardiovascular Exam: REGULAR RHYTHM, +S1, +S2 - GI/Abdominal Exam GI & Abdominal Exam: Soft, Tenderness (mild over epigastric, RUQ and RLQ. ), Normal Bowel Sounds. absent: Guarding, Rigid, Pulsatile Mass, Rebound - Extremities Exam Extremities Exam: Full ROM, Normal Inspection. absent: Tenderness - Neurological Exam Neurological Exam: Alert, Awake, Normal Gait Assessment and Plan - Assessment and Plan (Free Text) Plan: 41 y/o man w/ pmh of Hep C, anxiety, depression, bipolar disorder, PTSD, previous suicide attempt admitted to psych for depression w/ suicidal thoughts. Medically stable. Plan: 1. Depression with suicidal ideation/Bipolar disorder. - under psych management - on celexa 10 mg PO daily - on depakote 500 mg PO BID, quetiapine 150 mg PO HS 2. Heroin abuse/withdrawal - psych management - on Clonidine 01. mg PO Q8h, Haldol 5 mg PO Q4 and IM Q4 prn for agitation, Ativan 2 mg PO Q6 prn and IM Q4 prn for agitation/anxiety - Magnesium hydroxide 30 ml PO HS prn and Maalox 30 ml PO Q4 prn for constipation - NO PO Zofran necessary at this time. 3. Pain management - c/w Tylenol 650 mg PO Q4 PRN
--- NOTE | 2017-09-12 14:55 | PCM.PYCHPN ---
Psychiatric Progress Note - Psychiatric Progress Note Patient seen today, length of contact: pt evaluated discussed with team chart reviewed Patient Chief Complaint: I am depressed because I am withdrawing Problems Identified/Issues Discussed: pt on evaluation seen in bed unkempt, dysphoric mood and anxious affect, pt reported having muscle aches, decreased sleep, low energy and anhedonia pt denied any current suicidal or homicidal ideations denied perceptual disturbances DSM 5 Symptoms Update: opiate induced mood disorder hx of bipolar Medication Change: Yes (start flexeril) Medical Record Reviewed: Yes Mental Status Examination - Cognitive Function Orientation: Person, Place, Situation, Time Attention: Poor Concentration: Poor Association: WNL Fund of Knowledge: Poor - Mood Mood: Depressed, Anxious - Affect Affect: Constricted - Speech Speech: Soft - Formal Thought Process Formal Thought Process: Circumstantial Psychotic Thoughts and Behaviors: pt denied perceptual disturbances, non elicited - Suicidal Ideation Suicidal Ideation: No - Homicidal Ideation Homicidal Ideation: No Goal/Treatment Plan - Goal/Treatment Plan Need for Continued Stay: Severe depression anxiety, Discharge may exacerbated symptoms Progress Toward Problem(s) and Goals/Treatment Plan: continue with clonidine for symptoms and signs of opiate withdrawal continue with neurontin start flexeril for muscle seroquel 100mg qhs with plan to uptitrate motivational; and group therapy Estimated Date of D/C: 09/19/17
[2017-09-13] MEDS: Pantoprazole 40 mg EC Tab PO SCH (09:14)
[2017-09-13] MEDS: Multivitamin With Minerals Tab PO SCH (09:14)
--- NOTE | 2017-09-13 13:22 | PCM.PYCHPN ---
Psychiatric Progress Note - Psychiatric Progress Note Patient seen today, length of contact: pt evaluated discussed with team chart reviewed Patient Chief Complaint: I want to go inpatient rehab Problems Identified/Issues Discussed: pt on evaluation seen in day room, less isolative, continues to feel down, reported low energy due to the opiate withdrawal reported early insomnia, continues to feel down due to the financial difficulties discussed with pt increasing seroquel gradually pt denied any current suicidal or homicidal ideations, denied perceptual disturbances denied side effects of medications DSM 5 Symptoms Update: opiate induced mood disorder with depressive features opiate use disorder Medication Change: No Medical Record Reviewed: Yes Mental Status Examination - Cognitive Function Orientation: Person, Place, Situation, Time Attention: WNL Concentration: WNL Association: WNL Fund of Knowledge: Poor - Mood Mood: Depressed, Anxious - Affect Affect: Constricted - Speech Speech: Soft - Formal Thought Process Formal Thought Process: Circumstantial Psychotic Thoughts and Behaviors: pt denied perceptual disturbances, non elicited - Suicidal Ideation Suicidal Ideation: No - Homicidal Ideation Homicidal Ideation: No Goal/Treatment Plan - Goal/Treatment Plan Need for Continued Stay: Severe depression anxiety, Discharge may exacerbated symptoms Progress Toward Problem(s) and Goals/Treatment Plan: continue with clonidine for symptoms and signs of opiate withdrawal continue with neurontin and flexeril for muscle increase seroquel 200mg qhs with plan to uptitrate motivational; and group therapy Estimated Date of D/C: 09/19/17
[2017-09-14 09:32] VITALS: RESP 18
[2017-09-14] MEDS: Multivitamin With Minerals Tab PO SCH (09:50)
[2017-09-14] MEDS: Pantoprazole 40 mg EC Tab PO SCH (09:50)
--- NOTE | 2017-09-14 13:54 | PCM.PYCHPN ---
Psychiatric Progress Note - Psychiatric Progress Note Patient seen today, length of contact: pt evaluated discussed with team chart reviewed Patient Chief Complaint: I STILL GET ANXIOUS AND IT IS HARD TO FALL ASLEEP Problems Identified/Issues Discussed: pt on evaluation continues to report anxious mood and racing thoughts, reported early insomnia pt showing some insight into illness requesting referral to inpatient rehab denied any current suicidal or homicidal ideations, denied perceptual disturbances no reported side effects of medications DSM 5 Symptoms Update: opiate use disorder bipolar disorder depressed Medication Change: Yes (increase neurontin and seroquel) Medical Record Reviewed: Yes Mental Status Examination - Cognitive Function Orientation: Person, Place, Situation, Time Attention: WNL Concentration: WNL Association: WNL Fund of Knowledge: Poor - Mood Mood: Depressed, Anxious - Affect Affect: Constricted - Speech Speech: Appropriate - Formal Thought Process Formal Thought Process: Circumstantial Psychotic Thoughts and Behaviors: pt denied perceptual disturbances, non elicited - Suicidal Ideation Suicidal Ideation: No - Homicidal Ideation Homicidal Ideation: No Goal/Treatment Plan - Goal/Treatment Plan Need for Continued Stay: Severe depression anxiety, Discharge may exacerbated symptoms Progress Toward Problem(s) and Goals/Treatment Plan: increase seroquel to 300mg qhs , increase neurotin to 400mg tid motivational; and group therapy referral to inpatient rehab on discharge Estimated Date of D/C: 09/19/17
[2017-09-15] MEDS: Pantoprazole 40 mg EC Tab PO SCH (08:46)
[2017-09-15] MEDS: Multivitamin With Minerals Tab PO SCH (08:46)
--- NOTE | 2017-09-15 12:46 | PCM.PYCHPN ---
Psychiatric Progress Note - Psychiatric Progress Note Patient seen today, length of contact: pt evaluated discussed with team chart reviewed Patient Chief Complaint: I want to go to inpatient rehab Problems Identified/Issues Discussed: pt on evaluation reported feeling motivated to join inpatient rehab in [place], discussed with patient together with social services coordinator other rehab options available in [place], pt reported mood more stable, less depressed , and less paranoid, denied any current suicidal or homicidal ideations, denied perceptual disturbances DSM 5 Symptoms Update: opiate induced mood disorder hx of bipolar disorder Medication Change: No Medical Record Reviewed: Yes Mental Status Examination - Cognitive Function Orientation: Person, Place, Situation, Time Attention: WNL Concentration: WNL Association: WNL Fund of Knowledge: Poor - Mood Mood: Anxious - Affect Affect: Constricted - Speech Speech: Appropriate - Formal Thought Process Formal Thought Process: Circumstantial Psychotic Thoughts and Behaviors: pt denied perceptual disturbances, non elicited - Suicidal Ideation Suicidal Ideation: No - Homicidal Ideation Homicidal Ideation: No Goal/Treatment Plan - Goal/Treatment Plan Need for Continued Stay: Severe depression anxiety, Discharge may exacerbated symptoms Progress Toward Problem(s) and Goals/Treatment Plan: continue with seroquel 300mg qhs , and neurotin 400mg tid motivational; and group therapy referral to inpatient rehab on discharge Estimated Date of D/C: 09/19/17
[2017-09-16] MEDS: Pantoprazole 40 mg EC Tab PO SCH (09:28)
[2017-09-16] MEDS: Multivitamin With Minerals Tab PO SCH (09:28)
[2017-09-16 09:35] VITALS: BP 116/72; PULSE 76; TEMP 97.3
--- NOTE | 2017-09-16 12:12 | PCM.PYCHDC ---
Mental Status Examination - Mental Status Examination Orientation: Person, Place Memory: Intact Mood: Neutral Affect: Broad Speech: Appropriate Attention: WNL Concentration: WNL Association: WNL Fund of Knowledge: WNL Formal Thought Process: No Impairment Description of patient's judgement and insight: partial insight , poor judgment Psychotic Thoughts and Behaviors: pt denied perceptual disturbances, non elicited Suicidal Ideation: No Current Homicidal Ideation?: No Discharge Summary - Discharge Note Reason for Hospitalization: pt is a 41 yr old male with h/o depression ,PTSD and opiate and alcohol abuse and admitted for significant depression manifested by suicidal thoughts and plan to overdose on illicit drugs.pt reports abusing heroin and recently relapsed on heroin using 13 bags a day after being sober for sometime.pt has h/ o multiple admissions to [facility] for depression and opiate and alcohol abuse and was last d/c on depakote,neurontin and seroquel and celexa and has been noncompliant with the meds. Psychiatric History (includes Medical, Family, Personal Hx): for depression and mood disorder Consultations:: List each consultation separately and include: 1. Reason for request. 2. Findings. 3. Follow-up Consultations: family practice Summary of Hospital Course include:: 1. Description of specific treatment plan utilized for patients during their course of treatmen. 2. Summarize the time- course for resolution of acute symptoms and/or regressed behaviors. 3. Describe issues identified and worked on during hospitalization. 4. Describe medication utilized. 5. Describe medical problems identified and treated. 6. Reassessment of suicide risk Summary of Hospital Course: pt on admission was started on clonidine protocol for symptoms and signs of opiate withdrawal, flexeril was started for muscle aches pt was started on neurontin for anxiety up titrated to 400mg tid also was started on seroquel for bipolar depression it was uptitrated to 300mg qhs No reported side effects of medications, pt was encouraged to attend groups During meeting with treatment team . discharge plan was discussed to be referral to [facility], pt however decided to leave [facility] without completing the refferal process by web content & social media manager pt was educated on discharge about the risk of relapse and possible overdose, pt understood the possible risks on discharge pt mental status was stable, denied suicidal or homicidal ideations denied perceptual disturbances, at current mental status not danger to self or others - Diagnosis (1) Depression Current Visit: Yes Status: Acute - Final Diagnosis (DSM 5) Condition upon Discharge: GUARDED Disposition: HOME/ ROUTINE Follow-up Treatment Plan: continue with seroquel 300mg qhs , and neurotin 400mg tid motivational; and group therapy referral to inpatient rehab on discharge Prescriptions/Medication Reconciliation: Gabapentin [Neurontin] 400 mg PO TID 30 Days #90 cap QUEtiapine [SEROquel] 300 mg PO HS 30 Days #30 tab - Antipsychotic Medications Pt discharged on 2 or more routine antipsychotic medications: No
== END 2017-09-16 14:26 | disposition home or self-care (01) | DRG 430 ==
LOC: H.ER 21:11 → H.ERHOLD 09-11 06:26 → H.PSYCH 09-11 09:06
PROVIDERS: ADMIT Psychiatry & Neurology Psychiatry; ATTEND Psychiatry & Neurology Psychiatry
PROC: HZ52ZZZ Individual Psychotherapy for Substance Abuse Treatment, Cognitive-Behavioral (ICD-10-PCS; principal; 2017-09-11)
PROC: GZHZZZZ Group Psychotherapy (ICD-10-PCS; 2017-09-11)
PROC: GZ58ZZZ Individual Psychotherapy, Cognitive-Behavioral (ICD-10-PCS; 2017-09-11)
DX: F31.9 Bipolar disorder, unspecified (principal); F22 Delusional disorders; R45.851 Suicidal ideations; F11.23 Opioid dependence with withdrawal; F10.129 Alcohol abuse with intoxication, unspecified; F43.10 Post-traumatic stress disorder, unspecified; Y90.6 Blood alcohol level of 120-199 mg/100 ml; G47.00 Insomnia, unspecified; Z91.14 Patient's other noncompliance with medication regimen; Z91.5 Personal history of self-harm; F17.200 Nicotine dependence, unspecified, uncomplicated; Z86.19 Personal history of other infectious and parasitic diseases; Z88.0 Allergy status to penicillin; Z91.013 Allergy to seafood

== ENCOUNTER 2018-01-25 12:35 | Emergency (ER) | payer MEDICAID ==
[2018-01-25 12:35] VITALS: BMI 23.6
[2018-01-25 12:46] VITALS: BP 116/76; PULSE 77; RESP 16; TEMP 98.3; O2SAT 100
--- NOTE | 2018-01-25 12:50 | ED PDOC ---
HPI: Psych/Substance Abuse Time Seen by Provider: 01/25/18 12:49 Chief Complaint (Nursing): Psychiatric Evaluation Chief Complaint (Provider): crisis eval History Per: Patient Additional Complaint(s): 42-year-old male presents for crisis evaluation. Patient has history of bipolar disorder and IV heroin abuse and presents today stating he is hearing voices and that the police are out to get him. Patient also admits to suicidal ideation. He last used IV heroin at 1 am. Patient offers no medical complaints at this time. PMD: none Past Medical History Reviewed: Historical Data, Nursing Documentation, Vital Signs Vital Signs: Last Vital Signs Temp 98.3 F 01/25/18 12:44 Pulse 77 01/25/18 12:44 Resp 16 01/25/18 12:44 BP 116/76 01/25/18 12:44 Pulse Ox 100 01/25/18 12:44 - Medical History PMH: Anxiety, Bipolar Disorder, Depression, Hepatitis (C), Paranoia, Post Traumatic Stress Disorder - Surgical History Surgical History: - Family History Family History: States: No Known Family Hx - Living Arrangements Living Arrangements: With Family - Social History Current smoker - smoking cessation education provided: No Alcohol: None Drugs: Opiates (IV heroin) - Home Medications Home Medications: Ambulatory Orders Medication Instructions Recorded Gabapentin [Neurontin] 400 mg PO TID 30 Days #90 cap 09/16/17 Pantoprazole [Protonix EC Tab] 40 mg PO DAILY ect 09/16/17 QUEtiapine [SEROquel] 300 mg PO HS 30 Days #30 tab 09/16/17 Escitalopram [Lexapro] 10 mg PO DAILY #30 tab 12/29/17 Gabapentin [Neurontin] 400 mg PO TID #90 cap 12/29/17 Pantoprazole [Protonix EC Tab] 40 mg PO DAILY #30 ect 12/29/17 QUEtiapine [SEROquel] 50 mg PO HS #30 tab 12/29/17 - Allergies Allergies/Adverse Reactions: Allergies Allergy/AdvReac Type Severity Reaction Status Date / Time Penicillins Allergy RASH Verified 01/25/18 12:44 FISH AdvReac RASH Verified 01/25/18 12:44 Review of Systems ROS Statement: Except As Marked, All Systems Reviewed And Found Negative Psych: Positive for: Psychosis (hearing voices), Suicidal ideation, Other (IV heroin abuse) Physical Exam - Reviewed Nursing Documentation Reviewed: Yes Vital Signs Reviewed: Yes - Physical Exam Appears: Positive for: Well, Non-toxic, No Acute Distress Skin: Negative for: Rash Eye Exam: Positive for: Normal appearance Cardiovascular/Chest: Positive for: Regular Rate, Rhythm Respiratory: Positive for: Normal Breath Sounds. Negative for: Respiratory Distress Neurologic/Psych: Positive for: Alert, Oriented - ECG O2 Sat by Pulse Oximetry: 100 Pulse Ox Interpretation: Normal Medical Decision Making Medical Decision Makin42 year old here for crisis eval Plan: 1:1 bedside observation Crisis eval As per crisis counselor and psychiatrist field artillery operations man, Dr. Coburn, patient does not meet criteria for admission and is stable for discharge. Disposition - Clinical Impression Clinical Impression: Substance abuse - Patient ED Disposition Is Patient to be Admitted: No Counseled Patient/Family Regarding: Need For Followup - Disposition Referrals: [facility] [Outside] Disposition: Routine/Home (patient left ED before receiving and signing discharge paperwork) Disposition Time: 14:06 Condition: FAIR Additional Instructions: Follow up as directed. Instructions: Drug Abuse and Drug Addiction (DC), Drug Abuse Treatment Forms: [employer] ([place]an)
== END 2018-01-25 14:09 | disposition home or self-care (01) ==
LOC: H.ER 12:35
DX: F19.10 Other psychoactive substance abuse, uncomplicated (principal); F31.9 Bipolar disorder, unspecified; F43.10 Post-traumatic stress disorder, unspecified; Z88.0 Allergy status to penicillin

== ENCOUNTER 2018-06-05 01:51 | Emergency (ER) | payer MEDICAID ==
[2018-06-05 01:52] VITALS: BMI 23.6
[2018-06-05 02:13] VITALS: TEMP 98
--- NOTE | 2018-06-05 02:24 | ED PDOC ---
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 Patient was sent from [facility] after the police were called to pt's house for a domestic dispute. At this time, patient has no complaints, but arrived to the ED aggressive and agitated. He admits to drinking, but no other information could be obtained secondary to the patient being uncooperative. Unknown substance abuse. PMD: none provided <Spring Garcia - Last Filed: 06/05/18 05:40> <Arik Lynch - Last Filed: 06/05/18 06:59> Time Seen by Provider: 06/05/18 01:55 Chief Complaint (Nursing): Alcohol Ingestion Past Medical History Reviewed: Historical Data, Nursing Documentation, Vital Signs Vital Signs: Last Vital Signs Temp 98.0 F 06/05/18 02:10 Pulse 76 06/05/18 02:10 Resp 16 06/05/18 02:10 BP 113/79 06/05/18 02:10 Pulse Ox 100 06/05/18 02:10 - Medical History PMH: Anxiety, Bipolar Disorder, Depression, Hepatitis (C), Paranoia, Post Traumatic Stress Disorder - Surgical History Surgical History: - Family History Family History: States: Unknown Family Hx <Spring Garcia - Last Filed: 06/05/18 05:40> Vital Signs: Last Vital Signs Temp 98.0 F 06/05/18 02:10 Pulse 80 06/05/18 06:02 Resp 17 06/05/18 06:02 BP 92/54 L 06/05/18 06:02 Pulse Ox 98 06/05/18 06:02 <Arik Lynch - Last Filed: 06/05/18 06:59> - Home Medications Home Medications: Ambulatory Orders Medication Instructions Recorded No Known Home Med 02/19/18 - Allergies Allergies/Adverse Reactions: Allergies Allergy/AdvReac Type Severity Reaction Status Date / Time Penicillins Allergy RASH Verified 02/19/18 20:41 FISH AdvReac RASH Verified 06/06/18 12:44 Review of Systems Review Of Systems: ROS cannot be obtained secondary to pt's inabilty to answer questions. <Spring Garcia Last Filed: 06/05/18 05:40> Physical Exam - Reviewed Nursing Documentation Reviewed: Yes Vital Signs Reviewed: Yes - Physical Exam Comments: Limited exam due to pt being uncooperative in ED GENERAL APPEARANCE: Patient is awake, alert, in no acute distress. Verbally inappropriate towards staff. Odor of alcohol on breath. SKIN: Warm, dry; (-) cyanosis EYES: (+) bilateral conjunctival injection HEART AND CARDIOVASCULAR: (-) irregularity; (-) murmur, (-) gallop. CHEST AND RESPIRATORY: (-) rales, (-) rhonchi, (-) wheezes; breath sounds equal. ABDOMEN: Soft, (-) distention, (-) tenderness, (-) guarding. NEURO AND PSYCH: Mental status as above. <Spring Garcia Last Filed: 06/05/18 05:40> - ECG O2 Sat by Pulse Oximetry: 100 (RA) Pulse Ox Interpretation: Normal <Spring Garcia Last Filed: 06/05/18 05:40> Medical Decision Making Medical Decision Making: Initial Impression: alcohol intoxication, possible substance abuse Time: 214 Initial Plan: --Upon arrival to ED, pt placed in 4-point restraints due to concern for safety of pt and ED staff --Alcohol serum --Drug screen --1:1 observation --Accucheck --Reevaluation 0245 4 point restraints removed. Patient sleeping comfortably. 1:1 discontinued. Accucheck: 72 0315 Serum Alcohol: 214 0530 Patient sleeping comfortably on re-evaluation. No distress noted. Vitals stable. 0600 Continuation of care per Dr Lynch [address] Mena pending re-evaluation and clinical sobriety. --------- -------- Scribe Attestation: Documented by Giselle Mcnamara, acting as a scribe for Spring Garcia PA-C. Provider Scribe Attestation: All medical record entries made by the Scribe were at my direction and personally dictated by me. I have reviewed the chart and agree that the record accurately reflects my personal performance of the history, physical exam, medical decision making, and the department course for this patient. I have also personally directed, reviewed, and agree with the discharge instructions and disposition. <Spring Garcia - Last Filed: 06/05/18 05:40> Medical Decision Makin PAtient now awake, alert, steady gait, stable vitals No suicidal thoughts or homicidal thoughts Will discharge home <Arik Lynch - Last Filed: 06/05/18 06:59> Disposition - Patient ED Disposition Is Patient to be Admitted: Transfer of Care (Dr Mena at 0700 pending sobriety) - Disposition Disposition: Transfer of Care (Dr Mena @ 0700 pending sobriety) Disposition Time: 07:00 - POA Present On Arrival: None <Spring Garcia - Last Filed: 06/05/18 05:40> - Patient ED Disposition Is Patient to be Admitted: No - Disposition Disposition: Routine/Home <Arik Lynch - Last Filed: 06/05/18 06:59> - Clinical Impression Clinical Impression: Alcohol abuse with intoxication - Disposition Referrals: Aneudy Russo MD [Family Provider] - Alcoholics Anonymous [Outside] Condition: STABLE Additional Instructions: The emergency medical care you received today was directed towards the acute presenting symptoms. If you were prescribed any medication, please fill it and give as directed. It may take several days for your symptoms to resolve. Return to the Emergency Department at any time if symptoms worsen, do not improve, or if any other problems arise. Please contact your doctor in 2 days for re-evaluation and follow up / or call one of the physicians/clinics you have been referred to that are listed on the Patient Visit Information form that is included in your discharge packet. Bring any paperwork you were given at discharge with you along with any medications to your follow up visit. Our treatment cannot replace ongoing medical care by a primary care provider (PCP) outside of the emergency department. Instructions: Alcohol Abuse and Alcoholism (DC), Effects of Alcohol on Your Health Forms: [employer] (Latvian) Print Language: VIETNAMESE Results - Lab Results Lab Results: 06/05/18 06/05/18 02:51 02:45 POC Glucose (mg/dL) 72 Alcohol, Quantitative 214 H <Spring Garcia - Last Filed: 06/05/18 05:40> - Lab Results Lab Results: 06/05/18 06/05/18 02:51 02:45 POC Glucose (mg/dL) 72 Alcohol, Quantitative 214 H <Arik Lynch - Last Filed: 06/05/18 06:59>
[2018-06-05 06:34] VITALS: RESP 17; O2SAT 98
[2018-06-05 07:13] VITALS: BP 102/71; PULSE 82
== END 2018-06-05 07:32 | disposition home or self-care (01) ==
LOC: H.ER 01:51
DX: F10.129 Alcohol abuse with intoxication, unspecified (principal); F31.9 Bipolar disorder, unspecified; F43.10 Post-traumatic stress disorder, unspecified; Z88.0 Allergy status to penicillin

== ENCOUNTER 2018-07-16 13:05 | Emergency (ER) | payer MEDICAID ==
[2018-07-16 13:05] VITALS: BMI 23.6
--- NOTE | 2018-07-16 13:35 | ED PDOC ---
HPI: Psych/Substance Abuse Time Seen by Provider: 07/16/18 13:27 Chief Complaint (Nursing): Substance Abuse History Per: Patient Onset/Duration Of Symptoms: Unknown Current Symptoms Are (Timing): Still Present Suicide/Self Injury Attempted (Context): Ingestion Severity: Moderate Additional Complaint(s): Brought by EMS, pt states he smoked some sort of cigarette and then started feeling bugs crawling on him. Denies SI/HI. Pt does not know what he smoked. Past Medical History Vital Signs: Last Vital Signs Temp 97.9 F 07/16/18 13:13 Pulse 114 H 07/16/18 13:13 Resp 20 07/16/18 13:13 BP Pulse Ox 98 07/16/18 13:13 - Medical History PMH: Anxiety, Bipolar Disorder, Depression, Hepatitis (C), Paranoia, Post Traumatic Stress Disorder Denies: Diabetes, HIV, HTN, Chronic Kidney Disease, Seizures, Sexually Transmitted Disease - Surgical History Surgical History: - Family History Family History: States: Unknown Family Hx - Immunization History Hx Tetanus Toxoid Vaccination: No Hx Influenza Vaccination: No Hx Pneumococcal Vaccination: No - Home Medications Home Medications: Ambulatory Orders Medication Instructions Recorded RX: No Known Home Med 02/19/18 - Allergies Allergies/Adverse Reactions: Allergies Allergy/AdvReac Type Severity Reaction Status Date / Time Penicillins Allergy RASH Verified 02/19/18 20:41 FISH AdvReac RASH Verified 01/25/18 12:44 Review of Systems ROS Statement: Except As Marked, All Systems Reviewed And Found Negative Physical Exam - Reviewed Nursing Documentation Reviewed: Yes Vital Signs Reviewed: Yes - Physical Exam Appears: Positive for: Non-toxic, No Acute Distress Head Exam: Positive for: ATRAUMATIC, NORMAL INSPECTION, NORMOCEPHALIC Skin: Positive for: Normal Color, Warm, DRY Eye Exam: Positive for: EOMI, Normal appearance, PERRL ENT: Positive for: Normal ENT Inspection Neck: Positive for: Normal, Painless ROM Cardiovascular/Chest: Positive for: Regular Rate, Rhythm Respiratory: Positive for: CNT, Normal Breath Sounds Gastrointestinal/Abdominal: Positive for: Normal Exam, Soft Back: Positive for: Normal Inspection Extremity: Positive for: Normal ROM Neurologic/Psych: Positive for: Alert. Negative for: Motor/Sensory Deficits - Laboratory Results Result Diagrams: 07/16/18 14:01 07/16/18 14:01 - ECG O2 Sat by Pulse Oximetry: 98 Disposition - Clinical Impression Clinical Impression: Polysubstance abuse - Patient ED Disposition Is Patient to be Admitted: Transfer of Care - Disposition Referrals: [facility] [Outside] - 07/17/18 Disposition: Transfer of Care Disposition Time: 17:00 Condition: STABLE Additional Instructions: Return if not better in 3 days. Instructions: Polysubstance Abuse (DC) Patient Signed Over To: Richard Li
[2018-07-16 14:04] LABS: BASO # 0.1 K/uL (0.0-0.2); BASO % 0.8 % (0.0-2.0); EOS # 0.1 K/uL (0.0-0.7); EOS % 1.8 % (0.0-4.0); HEMOGLOBIN 14.7 g/dL (12.0-18.0); LYMPH # 2.7 K/uL (1.0-4.3); LYMPH % 33.1 % (20.0-40.0); MEAN CELL VOLUME 94.7 fl (80.0-94.0); MEAN CORPUSCULAR HEMOGLOBIN 31.5 pg (27.0-31.0); MEAN CORPUSCULAR HGB CONC 33.3 g/dL (33.0-37.0); MEAN PLATELET VOLUME 7.8 fl (7.2-11.7); MONO # 0.5 K/uL (0.0-0.8); MONO % 6.6 % (0.0-10.0); NEUT # 4.6 K/uL (1.8-7.0); NEUT % 57.7 % (50.0-75.0); NRBC % 0.1 % (0.0-0.0); RBC 4.67 Mil/uL (4.40-5.90); RED CELL DISTRIBUTION WIDTH 13.5 % (11.5-14.5)
[2018-07-16 14:26] LABS: ALB/GLOB RATIO 1.2 (1.0-2.1); ALBUMIN 4.7 g/dL (3.5-5.0); ALT/SGPT 25 U/L (21-72); AST/SGOT 42 U/L (17-59); BLOOD UREA NITROGEN 19 mg/dl (9-20); CALCIUM 9.8 mg/dL (8.4-10.2); GFR NON-AFRICAN AMERICAN > 60
[2018-07-16 14:54] LABS: BARBITURATES, UR NEGATIVE (NEGATIVE); BENZODIAZEPINES, UR NEGATIVE (NEGATIVE); OPIATES, UR NEGATIVE (NEGATIVE); PHENCYCLIDINE, UR POSITIVE (NEGATIVE)
--- NOTE | 2018-07-16 17:01 | ED PDOC ---
- Laboratory Results Result Diagrams: 07/16/18 14:01 07/16/18 14:01 - ECG O2 Sat by Pulse Oximetry: 99 Medical Decision Making Medical Decision Makin:00 -Patient endorsed to provider by Dr. Barclay, pending reevaluation. 1830: Pt. stable. AAOx3. Tolerated po. Has capacity to make decisions. Ambulated with no issues. Disposition Counseled Patient/Family Regarding: Studies Performed, Diagnosis, Need For Followup - Clinical Impression Clinical Impression: Polysubstance abuse - POA Present On Arrival: None - Disposition Referrals: [facility] [Outside] - 07/17/18 Disposition: Routine/Home Disposition Time: 18:31 Condition: STABLE Additional Instructions: Return if not better in 3 days. Instructions: Polysubstance Abuse (DC)
[2018-07-16 18:28] VITALS: BP 108/41; PULSE 85; RESP 19; TEMP 98.2
--- NOTE | 2018-07-16 23:19 | CARD ---
APPROVED REPORT Date of service: 07/16/2018 EKG Measurement Heart [id number] <Conclusion> Normal sinus rhythm Normal ECG
[2018-07-17 14:02] VITALS: O2SAT 98
== END 2018-07-16 18:41 | disposition home or self-care (01) ==
LOC: H.ER 13:05
DX: F19.10 Other psychoactive substance abuse, uncomplicated (principal)
CPT/HCPCS: 80053; 80320; 80324; 80345; 80346; 80349; 80353; 80358; 80361; 83992; 85025; 93005; 96372; 99284; J2060